=== PATIENT | male | born 1980 | race Caucasian/White ===

== ENCOUNTER 2016-07-12 11:43 | Emergency (ER) | payer OTHER, MEDICAID ==
--- NOTE | ~2016-07-12 | ER ---
[facility] AGE: 35 Y [address] ROOM: [place] [address] LOCATION: [facility] ADMIT DATE: 07/12/2016 ER/Outpatient Report DISCHARGE DATE: 07/12/2016 FAMILY PHYSICIAN: Don Bejarano MD ATTENDING PHYSICIAN: Maynor Meng Time of Arrival: 1155 hours. Time of Evaluation: 1200 noon. CHIEF COMPLAINT: Ankle injury. HISTORY OF PRESENT ILLNESS: The patient states approximately 1045 hours this morning, he stepped in a hole in the parking lot here at [facility] twisting his left ankle. He has tenderness throughout the ankle with a burning sensation. Denies any previous injury to that ankle. ALLERGIES: MORPHINE, OXYCONTIN. CURRENT MEDICATIONS: Amoxicillin for sinus infection diagnosed 2 days ago. PAST MEDICAL HISTORY: Recent diagnosis of sinus infection. PAST SURGICAL HISTORY: Appendectomy, left shoulder surgery, right knee scope. SOCIAL HISTORY: Smokes half pack per day and has for the past 14 years. Denies use of drugs. Drinks alcohol on an occasional basis only. REVIEW OF SYSTEMS: All negative other than those mentioned in the HPI. PHYSICAL EXAMINATION: VITAL SIGNS: He weighed 109.8 kg. Blood pressure is 121/90, pulse is 64, respirations 18, temperature of 96.6, O2 saturations 95% on room air. GENERAL: He is awake, alert, and oriented x4. SKIN: Gerald, warm, and dry. RESPIRATIONS: Even and nonlabored. Lung sounds were clear throughout. HEART: Regular rate and rhythm. EXTREMITIES: No swelling or deformity of the left ankle is noted. He has PATIENT'S NAME: [facility] AGE: 35 Y [address] ROOM: [place], [place] [address] LOCATION: [facility] ADMIT DATE: 07/12/2016 ER/Outpatient Report DISCHARGE DATE: 07/12/2016 FAMILY PHYSICIAN: Don Bejarano MD ATTENDING PHYSICIAN: Maynor Meng strong pedal pulses. Tender to touch on the lateral malleolus area. X-ray was completed. No bony abnormality is noted. IMPRESSION: Sprained ankle. PLAN: Jorge wrap was applied for support. He is to take 3 tabs of ibuprofen daily 3 times a day for the next week. Follow up with Dr. Bejarano, his primary provider, if symptoms persist or worsen or return to the ER as needed. He verbalized understanding. SERA ROMERO APRN FOR MD MARQUISE HOWELL/zainab /[id number] d: 07/12/16 1938 t: 07/17/16 0607, OUTPATIENT REPORT
== END 2016-07-12 12:31 | disposition disaster alternative care site (69) ==
LOC: GACC 11:43
DX: S93.401A Sprain of unspecified ligament of right ankle, initial encounter (principal); X50.1XXA Overexertion from prolonged static or awkward postures, initial encounter; F17.210 Nicotine dependence, cigarettes, uncomplicated; Z88.5 Allergy status to narcotic agent